=== PATIENT | female | born 1980 | race Hispanic/Latino ===

== ENCOUNTER 2020-11-05 10:58 | Emergency (ER) | payer SELFPAY ==
[2020-11-05 11:15] LABS: Absolute Lymphocytes (CBC) 1.3 K/uL (0.7-4.9); Basophils % 1.3 % (0-1.3); Hematocrit 33.1 % (36.0-45.0); MPV 8.9 fL (7.6-11.3); RBC Red Blood Cell Count 4.19 M/uL (3.86-4.86)
[2020-11-05 11:26] LABS: Protime INR 1.11
--- NOTE | 2020-11-05 11:26 | RAD REPORT ---
EXAM DESCRIPTION: CT - Ct Stroke Brain Wo Cont - 11/05/2020 11:16 am CLINICAL HISTORY: Slurred speech COMPARISON: none TECHNIQUE: Computed axial tomography of the head was obtained. All CT scans are performed using dose optimization technique as appropriate and may include automated exposure control or mA/KV adjustment according to patient size. FINDINGS: An intracranial bleed is not seen . The ventricles are normal in caliber. No extra-axial fluid collection is noted. Fluid within the sinuses/ mastoids is not seen. Mild chronic sinusitis IMPRESSION: No acute intracranial abnormality is seen. If patient's symptoms persist MRI of the bra in would be recommended. Doctor Sin of the emergency room was notified at 11:20 a.m. November 05, 2020
--- NOTE | 2020-11-05 11:37 | ER ---
Nurse's Notes [facility] Name: Florida Slater Age: 40 yrs Sex: Female : 1980 Arrival Date: 11/05/2020 Time: 11:00 Bed 5 Private MD: Diagnosis: Cerebral infarction;Aphasia following cerebral infarction Presentation: 11/05 11:01 Chief complaint: Patient states: Passed out at home today around 0900. Family called 1 EMS. Patient isn't talking upon EMS arrival. Moving all extremities. EMS noted both upper extremities are weak, slight drift L. Family told EMS the same thing happened two days ago, but resolved on its own. Happened again today, so they called EMS. Coronavirus screen: Client denies travel out of the [place] in the last 14 days. At this time, the client does not indicate any symptoms associated with coronavirus-19. Ebola Screen: Patient denies travel to an Ebola-affected area in the 21 days before illness onset. Initial Sepsis Screen: Does the patient meet any 2 criteria? HR > 90 bpm. No. Patient's initial sepsis screen is negative. Does the patient have a suspected source of infection? No. Patient's initial sepsis screen is negative. Risk Assessment: Do you want to hurt yourself or someone else? Patient reports no desire to harm self or others. Onset of symptoms was November 05, 2020. 11:01 Method Of Arrival: EMS: [facility] 11:01 Acuity: SHARIFA 2 ll1 Triage Assessment: 13:22 General: Appears in no apparent distress. Behavior is calm, cooperative, appropriate ll1 for age. Pain: Denies pain. Neuro: Level of Consciousness is awake, alert, obeys commands, Oriented to person, place, time, situation, Appropriate for age Orthopedic Brace Maker are weak on left Moves all extremities. Full function Weakness in left Gait is steady, Speech is normal, Facial symmetry appears normal, Pupils are PERRLA, Reports dizziness, headache. Cardiovascular: No deficits noted. Respiratory: No deficits noted. 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 - Social history:: Smoking status: Patient denies any tobacco usage or history of. - Family history:: not pertinent. Screenin:03 Abuse screen: Denies threats or abuse. Nutritional screening: No deficits noted. ll1 Tuberculosis screening: No symptoms or risk factors identified. Fall Risk Fall in past 12 months (25 points). IV access (20 points). Gait- Impaired (20 pts.). Mental Status- Overestimates/Forgets Limitations (15 pts.). Total Eduardo Fall Scale indicates High Risk Score (45 or more points). Fall prevention measures have been instituted. Side Rails Up X 2 Placed Close to Nursing Station Frequent Obs/Assessments Occuring As available patient and family educated on Fall Prevention Program and Strategies. Assessment: 11:17 Reassessment: Back from CT. Daughter at bedside who states onset of symptoms was around ss 0900 this morning. 13:23 Neuro:. Cardiovascular: Rhythm is sinus tachycardia. 1 Vital Signs: 11:01 Temp 98.5; Pain 0/10; ll1 11:18 BP 112 / 85; Pulse 116; Resp 20; Pulse Ox 100% on R/A; Weight 49.9 kg; Pain 0/10; ss 13:25 BP 110 / 81; Pulse 103; Resp 18; Pulse Ox 100% on R/A; ll1 NIH Stroke Scale Scores: 11:30 NIHSS Score: 9 [facility] ED Course: 11:00 Patient arrived in ED. ll1 11:01 Michael Sin MD is Attending Physician. [facility] 11:01 Arm band placed on Patient placed in an exam room, on a stretcher. 1 11:03 Triage completed. ll1 11:04 Patient has correct armband on for positive identification. Bed in low position. Call ll1 light in reach. Side rails up X2. 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 Pulse ox on. NIBP on. 11:04 Maintain EMS IV. Dressing intact. Good blood return noted. Site clean \T\ dry. Gauge \T\ ll 1 site: 20 G L wrist. 11:05 Inserted saline lock: 18 gauge in left antecubital area, using aseptic technique. Blood 1 collected. 11:11 Winnie Santana RN is Primary Nurse. ll1 11:15 CT Stroke Brain w/o Contrast In Process Unspecified. EDMS 11:[address] Sin with Deyvi from the [facility] transfer Center. eb 11:[address] Garcia the neurologist business continuity consultant for [facility] with Dr. Sin for eb patient transfer consultation. 11:33 administrative approval given to Valerie Foreman RN by Deyvi Monet/ patient has been eb accepted to [facility] RM 7512/ Dr. Mercy Garcia has accepted the patient in transfer/ report to be called to [phone]. 11:42 XRAY Chest (1 view) In Process Unspecified. EDMS 11:55 CT Head Angio In Process Unspecified. EDMS 11:55 Neck Angio In Process Unspecified. EDMS 13:23 No provider procedures requiring assistance completed. ll1 13:24 Patient transferred, IV remains in place. ll1 Administered Medications: 11:15 Drug: foLIC Acid 1 mg Route: IVPB; Site: left wrist; ll1 12:16 Follow up: Response: No adverse reaction; IV Status: Completed infusion; IV Intake: ll1 0.2ml 11:15 Drug: NS 0.9% 1000 ml Route: IV; Rate: 1 bolus; Site: left wrist; ll1 12:57 Follow up: Response: No adverse reaction; RASS: Alert and Calm (0); IV Status: ll1 Completed infusion; IV Intake: 1000ml 11:40 Drug: Pepcid 20 mg Route: IVP; Site: left antecubital; ll1 12:14 Follow up: Response: No adverse reaction; RASS: Alert and Calm (0) ll1 12:02 Drug: ACTIvase {Co-Signature: ph (Reyna Burrell RN).} Route: IV Thrombolytics; Rate: ll1 calculated rate; Infused Over: 60 mins; 12:57 Follow up: Response: No adverse reaction; RASS: Alert and Calm (0) ll1 13:26 Follow up: Response: No adverse reaction; RASS: Alert and Calm (0) ll1 Intake: 12:16 IV: 0ml; Total: 0ml. ll1 12:57 IV: 1000ml; Total: 1000ml. ll1 Outcome: 11:37 ER care complete, transfer ordered by . yoli 12:45 Demonstrated understanding of Report given to Adelita Gibbs RN at [facility] ll1 13:23 Transferred by ground EMS to [facility], Transfer form completed. ll1 X-rays sent w/ patient. 13:23 Condition: stable 13:23 Discharge instructions given to patient, family, Instructed on the need for transfer, Demonstrated understanding of instructions. 13:25 Patient left the ED. ll1 NIH Stroke Scale - NIH Stroke Score Date: 11/05/2020 Time: 11:30 Total Score = 9 1a. Level of Consciousness (LOC) - 0(Alert) 1b. Level of Consciousness (LOC) (Year \T\ Age) - 2(Neither) 1c. LOC Commands (Open \T\ Closes Eyes/Green Promotions Specialist) - 0(Both) 2. Best Gaze (Lateral Gaze Paresis) - 0(Normal) 3. Visual Field Loss - 0(No visual loss) 4. Facial Palsy - 0(Normal) 5a. Left Arm: Motor (10-second hold) - 1(Drift) 5b. Right Arm: Motor (10-second hold) - 0(No drift) 6a. Left Leg: Motor (5-second hold - always test supine) - 1(Drift) 6b. Right Leg: Motor (5-second hold - always test supine) - 0(No drift) 7. Limb Ataxia (finger/nose \T\ heel/boyer - test with eyes open) - 0(Absent) 8. Sensory Loss (pinprick arms/legs/face) - 0(Normal) 9. Best Language: Aphasia (description/naming/reading) - 3(Mute, global aphasia) 10. Dysarthria (speech clarity - read or repeat words) - 2(Severe) 11. Extinction and Inattention (visual/tactile/auditory/spatial/personal) - 0(No abnormality) Initials: yoli Signatures: Dispatcher [employer] EDKS Michael Sin MD MD cha Smirch, Shelby, RN RN Luana Babcock Lynsay, RN RN 1 Reyna Burrell RN ph Corrections: (The following items were deleted from the chart) 11:22 11:01 Chief complaint: Patient states: Passed out at home today. Family called [facility] EMS. Patient isn't talking upon EMS arrival. Moving all extremities. EMS noted both upper extremities are weak, slight drift L. Family told EMS the same thing happened two days ago, but resolved on its own. Happened again today, so they called EMS. ll1
--- NOTE | 2020-11-05 11:38 | EDPHYS ---
Physician Documentation [facility] Name: Florida Slater Age: 40 yrs Sex: Female : 1980 Arrival Date: 11/05/2020 Time: 11:00 Bed 5 Private MD: ED Physician Michael Sin HPI: 11/05 11:26 This 40 yrs old Female presents to ER via EMS with complaints of Syncope, yoli Aphasia. 11:26 The patient has experienced near-syncope, almost passed out, felt dizzy. Onset: The yoli symptoms/episode began/occurred 2 hour(s) ago. Duration: This was a single episode, that is still ongoing. Context: the episode(s) was witnessed, by family, daughter. Associated injury: The patient did not suffer any apparent associated injury. Associated signs and symptoms: The patient has no apparent associated signs or symptoms. Current symptoms: Currently, the patient is not experiencing any symptoms. 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 - Social history:: Smoking status: Patient denies any tobacco usage or history of. - Family history:: not pertinent. ROS: 11:33 Constitutional: Negative for fever, chills, and weight loss, Eyes: Negative for injury, yoli pain, redness, and discharge, ENT: Negative for injury, pain, and discharge, Neck: Negative for injury, pain, and swelling, Cardiovascular: Negative for chest pain, palpitations, and edema, Respiratory: Negative for shortness of breath, cough, wheezing, and pleuritic chest pain, Abdomen/GI: Negative for abdominal pain, nausea, vomiting, diarrhea, and constipation, Back: Negative for injury and pain, : Negative for injury, bleeding, discharge, and swelling, Skin: Negative for injury, rash, and discoloration, Psych: Negative for depression, anxiety, suicide ideation, homicidal ideation, and hallucinations, Allergy/Immunology: Negative for hives, rash, and allergies, Endocrine: Negative for neck swelling, polydipsia, polyuria, polyphagia, and marked weight changes. 11:33 MS/extremity: Positive for decreased range of motion, of the left arm and left leg. 11:33 Neuro: Positive for altered mental status, speech changes, weakness, of the left arm and left leg. Exam: 11:33 Constitutional: This is a well developed, well nourished patient who is awake, alert, yoli and in no acute distress. Head/Face: Normocephalic, atraumatic. Eyes: Pupils equal round and reactive to light, extra-ocular motions intact. Lids and lashes normal. Conjunctiva and sclera are non-icteric and not injected. Cornea within normal limits. Periorbital areas with no swelling, redness, or edema. ENT: Nares patent. No nasal discharge, no septal abnormalities noted. Tympanic membranes are normal and external auditory canals are clear. Oropharynx with no redness, swelling, or masses, exudates, or evidence of obstruction, uvula midline. Mucous membranes moist. Neck: Trachea midline, no thyromegaly or masses palpated, and no cervical lymphadenopathy. Supple, full range of motion without nuchal rigidity, or vertebral point tenderness. No Meningismus. Chest/axilla: Normal chest wall appearance and motion. Nontender with no deformity. No lesions are appreciated. Cardiovascular: Regular rate and rhythm with a normal S1 and S2. No gallops, murmurs, or rubs. Normal PMI, no JVD. No pulse deficits. Respiratory: Lungs have equal breath sounds bilaterally, clear to auscultation and percussion. No rales, rhonchi or wheezes noted. No increased work of breathing, no retractions or nasal flaring. Abdomen/GI: Soft, non-tender, with normal bowel sounds. No distension or tympany. No guarding or rebound. No evidence of tenderness throughout. Back: No spinal tenderness. No costovertebral tenderness. Full range of motion. Skin: Warm, dry with normal turgor. Normal color with no rashes, no lesions, and no evidence of cellulitis. MS/ Extremity: Pulses equal, no cyanosis. Neurovascular intact. Full, normal range of motion. 11:33 Neuro: Orientation: unable to test, aphasic, Mentation: slow to respond, Memory: unable to test, Cranial nerves: grossly normal, is grossly normal based on the patient's age, no acute changes, Cerebellar function: unable to test, Motor: strength is 4/5 in the left arm and left leg, Sensation: is normal, no obvious gross deficits, appropriate Gait: not tested. seizure activity, is not displayed by the patient. Vital Signs: 11:01 Temp 98.5; Pain 0/10; ll1 11:18 BP 112 / 85; Pulse 116; Resp 20; Pulse Ox 100% on R/A; Weight 49.9 kg; Pain 0/10; ss 13:25 BP 110 / 81; Pulse 103; Resp 18; Pulse Ox 100% on R/A; ll1 NIH Stroke Scale Scores: 11:30 NIHSS Score: 9 yoli MDM: 11:01 Patient medically screened. yoli 11:37 Differential Diagnosis: cardiac arrhythmia, cerebrovascular accident, drug effect, yoli emotional response, transient ischemic attack, vasovagal episode. Data reviewed: vital signs, nurses notes, lab test result(s), EKG, radiologic studies, CT scan, plain films. 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 Test interpretation: by ED physician or midlevel provider: ECG, plain radiologic studies. Counseling: I had a detailed discussion with the patient and/or guardian regarding: the historical points, exam findings, and any diagnostic results supporting the discharge/admit diagnosis, lab results, radiology results, the need to transfer to another facility, for higher level of care, [facility] does not immediately have the required specialist. 11/05 11:04 Order name: Basic Metabolic Panel [facility] 11/05 11:04 Order name: CBC with Diff 11/05 11:04 Order name: LFT's 11/05 11:04 Order name: Magnesium 11/05 11:04 Order name: NT PRO-BNP 11/05 11:04 Order name: PT-INR [facility] 11/05 11:04 Order name: Troponin (emerg Dept Use Only); Complete Time: 12:19 [facility] 11/05 11:04 Order name: Sed Rate; Complete Time: 12:19 [facility] 11/05 11:04 Order name: CRP; Complete Time: 12:19 [facility] 11/05 11:04 Order name: UDS 11/05 11:04 Order name: Basic Metabolic Panel; Complete Time: 12:19 EDMS 11/05 11:04 Order name: CBC with Automated Diff; Complete Time: 12:19 EDMS 11/05 11:04 Order name: Liver (Hepatic) Function; Complete Time: 12:19 [facility] 11/05 11:04 Order name: Magnesium; Complete Time: 12:19 [facility] 11/05 11:04 Order name: XRAY Chest (1 view) [facility] 11/05 11:04 Order name: EKG; Complete Time: 11:04 [facility] 11/05 11:04 Order name: Cardiac monitoring; Complete Time: 11:05 [facility] 11/05 11:04 Order name: EKG - Nurse/Tech; Complete Time: 12:57 [facility] 11/05 11:04 Order name: IV Saline Lock; Complete Time: 11:05 [facility] 11/05 11:04 Order name: Labs collected and sent; Complete Time: 11:05 [facility] 11/05 11:04 Order name: NT PRO-BNP; Complete Time: 12:19 [facility] 11/05 11:04 Order name: Protime (+INR); Complete Time: 12:19 [facility] 11/05 11:10 Order name: CT Stroke Brain w/o Contrast; Complete Time: 11:44 [facility] 11/05 11:18 Order name: Glucose, Ancillary Testing [facility] 11/05 11:33 Order name: CT Head Angio; Complete Time: 12:19 [facility] 11/05 11:35 Order name: Neck Angio; Complete Time: 12:19 [facility] 11/05 11:04 Order name: O2 Per Protocol; Complete Time: 11:05 [facility] 11/05 11:04 Order name: O2 Sat Monitoring; Complete Time: 11:05 [facility] Administered Medications: 11:15 Drug: foLIC Acid 1 mg Route: IVPB; Site: left wrist; ll1 12:16 Follow up: Response: No adverse reaction; IV Status: Completed infusion; IV Intake: ll1 0.2ml 11:15 Drug: NS 0.9% 1000 ml Route: IV; Rate: 1 bolus; Site: left wrist; ll1 12:57 Follow up: Response: No adverse reaction; RASS: Alert and Calm (0); IV Status: ll1 Completed infusion; IV Intake: 1000ml 11:40 Drug: Pepcid 20 mg Route: IVP; Site: left antecubital; ll1 12:14 Follow up: Response: No adverse reaction; RASS: Alert and Calm (0) ll1 12:02 Drug: ACTIvase {Co-Signature: ph (Reyna Burrell RN).} Route: IV Thrombolytics; Rate: ll1 calculated rate; Infused Over: 60 mins; 12:57 Follow up: Response: No adverse reaction; RASS: Alert and Calm (0) ll1 13:26 Follow up: Response: No adverse reaction; RASS: Alert and Calm (0) ll1 Disposition: 11/05/20 11:37 Transfer ordered to [facility]. Diagnosis are Cerebral infarction, Aphasia following cerebral infarction. - Reason for transfer: Higher level of care. - Accepting physician is to Dr Garcia. - Condition is Fair. - Problem is new. - Symptoms have improved. NIH Stroke Scale - NIH Stroke Score Date: 11/05/2020 Time: 11:30 Total Score = 9 1a. Level of Consciousness (LOC) - 0(Alert) 1b. Level of Consciousness (LOC) (Year \T\ Age) - 2(Neither) 1c. LOC Commands (Open \T\ Closes Eyes/Supervisor Char House) - 0(Both) 2. Best Gaze (Lateral Gaze Paresis) - 0(Normal) 3. Visual Field Loss - 0(No visual loss) 4. Facial Palsy - 0(Normal) 5a. Left Arm: Motor (10-second hold) - 1(Drift) 5b. Right Arm: Motor (10-second hold) - 0(No drift) 6a. Left Leg: Motor (5-second hold - always test supine) - 1(Drift) 6b. Right Leg: Motor (5-second hold - always test supine) - 0(No drift) 7. Limb Ataxia (finger/nose \T\ heel/boyer - test with eyes open) - 0(Absent) 8. Sensory Loss (pinprick arms/legs/face) - 0(Normal) 9. Best Language: Aphasia (description/naming/reading) - 3(Mute, global aphasia) 10. Dysarthria (speech clarity - read or repeat words) - 2(Severe) 11. Extinction and Inattention (visual/tactile/auditory/spatial/personal) - 0(No abnormality) Initials: yoli Signatures: Dispatcher [employer] Michael Smith MD MD cha Lewis, Lynsay, RN RN ll1 Reyna Burerll RN ph Corrections: (The following items were deleted from the chart) 13:25 11:37 11/05/2020 11:37 Transfer ordered to [address] Diagnosis is Cerebral infarction; Aphasia following cerebral infarction. Reason for transfer: Higher level of care. Accepting physician is to Dr Garcia. Condition is Fair. Problem is new. Symptoms have improved. yoli
[2020-11-05 11:39] LABS: ALT/SGPT 18 U/L (12-78); AST/SGOT 14 U/L (15-37); Albumin 4.1 g/dL (3.4-5.0); Alkaline Phosphatase 50 U/L (45-117); BUN Blood Urea Nitrogen 10 mg/dL (7-18); Bicarbonate 23 mmol/L (21-32); Bilirubin Direct 0.2 mg/dL (0-0.2); Bilirubin Total 0.5 mg/dL (0.2-1.0); Glucose Level 93 mg/dL (74-106); Magnesium 2.4 mg/dL (1.8-2.4); NT PRO-BNP 13 pg/mL (<125); Potassium 3.5 mmol/L (3.5-5.1); Protein, Total 7.7 g/dL (6.4-8.2); Sodium Level 144 mmol/L (136-145); Troponin (Emerg Dept Use Only) < 0.02 ng/mL (0.0-0.045)
[2020-11-05] MEDS ORDERED: FAMOTIDINE 20 MG/2 ML VIAL IV ONE (11:44)
[2020-11-05] MEDS ORDERED: ALTEPLASE 100 ML IV ONE (11:44)
[2020-11-05 11:45] LABS: C-Reactive Protein < 2.90 mg/L (<3.00)
[2020-11-05] MEDS ORDERED: NA CHLORIDE 0.9% 250 ML ONE (11:45)
--- NOTE | 2020-11-05 12:16 | RAD REPORT ---
EXAM DESCRIPTION: [place] Angio11/05/2020 11:55 am CLINICAL HISTORY: Slurred speech COMPARISON: None TECHNIQUE: 50 cc Isovue 370 was administered intravenously. 3D MIP reconstruction performed All CT scans are performed using dose optimization technique as appropriate and may include automated exposure control or mA/KV adjustment according to patient size. FINDINGS: The common carotid, internal carotid and external carotid arteries are normal caliber wit hout stenosis. The vertebral arteries are codominant without abnormality. IMPRESSION: Unremarkable exam NASCET criteria used. Mild 0-49% stenosis Moderate 50-69% stenosis Severe 70-99% stenosis
--- NOTE | 2020-11-05 12:18 | RAD REPORT ---
EXAM DESCRIPTION: CTHead angio11/05/2020 11:55 am CLINICAL HISTORY: Slurred speech COMPARISON: None TECHNIQUE: CT angiogram of the head was obtained. 3D MIPS reconstruction performed. All CT scans are performed using dose optimization technique as appropriate and may include automated exposure control or mA/KV adjustment according to patient size. FINDINGS: The basilar, internal carotid, anterior cerebral, middle cerebral and posterior cerebral a rteries are normal caliber. An aneurysm is not seen. A significant stenosis is not noted. IMPRESSION: Unremarkable CT angiogram head.
--- NOTE | 2020-11-05 12:22 | RAD REPORT ---
EXAM DESCRIPTION: [place] Single View11/05/2020 11:41 am CLINICAL HISTORY: cough COMPARISON: none FINDINGS: The lungs appear clear of acute infiltrate. The heart is normal size IMPRESSION: No acute abnormalities displayed
[2020-11-05 13:17] LABS: Barbiturates NEGATIVE (NEGATIVE); Benzodiazepines NEGATIVE (NEGATIVE); Cocaine NEGATIVE (NEGATIVE); METHAMPHETAM NEGATIVE (NEGATIVE); Methadone NEGATIVE (NEGATIVE); Opiates NEGATIVE (NEGATIVE); Phencyclidine NEGATIVE (NEGATIVE); THC Cannibis NEGATIVE (NEGATIVE)
[2020-11-05 13:46] VITALS: TEMP 98.5
[2020-11-05 13:47] VITALS: O2SAT 100
[2020-11-05 13:49] VITALS: BP 110/81
--- NOTE | 2020-11-06 17:11 | EKG ---
Test Date: 2020-11-05 Test Time: 11:23:52 Casket Inspector: DO MEASUREMENT RESULTS: Intervals: Rate: 118 TN: 140 QRSD: 68 QT: 340 QTc: 476 [place]: P: 70 TN: 140 QRS: 51 T: 36 INTERPRETIVE STATEMENTS: Sinus tachycardia Nonspecific ST abnormality Abnormal ECG No previous ECG available for comparison Electronically Signed On 11-06-20 17:06:29 REGIONAL DIRECTOR OF ADMISSIONS by Chinmay Alejandre
== END 2020-11-05 13:25 | disposition short-term general hospital (02) ==
LOC: ER 10:58
DX: I63.9 Cerebral infarction, unspecified (principal); R47.01 Aphasia; R29.709 NIHSS score 9
CPT/HCPCS: 36415; 70450; 70496; 70498; 71045; 80048; 80076; 80307; 82947; 83735; 83880; 84484; 85025; 85610; 85652; 86140; 92977; 93005; 96361; 96365; 96375; 99285; J2997; J7050; Q9967